=== PATIENT | female | born 1995 | race African-American/Black ===

== ENCOUNTER 2016-06-02 16:57 | Emergency (ER) | payer SELFPAY ==
[~2016-06-02] VITALS: Ht 170.2 cm; Wt 63.5 kg
--- NOTE | 2016-06-02 16:57 | NUR ---
Patient was BIBA at this time.
[2016-06-02 17:15] VITALS: BP 98/58
--- NOTE | 2016-06-02 19:04 | NUR ---
PATIENT LEFT WITHOUT BEING SEEN BY DR. HUSSEIN. NO FURTHER CARE PROVIDED FOR PATIENT.
== END 2016-06-02 19:04 | disposition left against medical advice (07) ==
LOC: MED 16:57
DX: R10.9 Unspecified abdominal pain (principal); Z53.21 Procedure and treatment not carried out due to patient leaving prior to being seen by health care provider